=== PATIENT | female | born 1965 | race Caucasian/White ===

== ENCOUNTER → 2018-06-28 | Outpatient (REF) | payer OTHER ==
[2018-07-07 14:15] LABS: HPV HYBRID CAPTURE II Negative (Negative)
== END ==
LOC: M LAB LCGH 12:45
PROVIDERS: ATTEND Nurse Practitioner Adult Health
DX: Z12.4 Encounter for screening for malignant neoplasm of cervix (principal)
CPT/HCPCS: 87624; G0123